=== PATIENT | female | born 1980 | race Caucasian/White ===

== ENCOUNTER 2019-06-28 12:30 | Outpatient (RCR) | payer OTHER, SELFPAY ==
--- NOTE | 2019-06-03 10:16 | PTOPEVAL ---
PHYSICAL THERAPY EVALUATION AND PLAN OF CARE 06-03-2019 The PT evaluation was completed for the diagnosis of B LE lymphedema. Treatment is scheduled for 3x/week for 5 weeks. Thank you for referring Mrs. Duvall to [facility]. Please review, sign, date and return this plan of care [facility]. I agree with and certify that the following plan of care is medically necessary. Referring Physician Date Attending Provider: Carmine Suero MD *PT Outpatient Evaluation Start: 06/03/19 09:06 Document 06/03/19 09:00 MARILU (Rec: 06/03/19 10:10 MARILU [id number]) Outpatient Past Medical History Neurological History Hx Neurological Disorders No Significant History Cardiovascular History Hx Hypertension Yes: meds Respiratory History Hx Bronchitis Yes: usually have in winter Hx Other Respiratory Disorders Yes: sinus issues and drainage ; sinus surgery Gastrointestinal History Hx Hernia Yes: hernia surgery x2- groin Genitourinary History Hx Urinary Tract Infection Yes Musculoskeletal History Hx Other Musculoskeletal Disorders Yes: obesity 338# Hematological History Hx Hematological Disorders No Significant History Endocrine History Hx Hypothyroidism Yes: meds HEENT History Hx Tonsillectomy Yes Hx Sinus Problems Yes: sinus surgery;polyp removals;take flonase Reproductive History Hx Other Reproductive Disorders Yes: 2 c- sections Evaluation Information Problem Diagnosis lympedema B LE Onset about 1 yr ago Prior Level of Function Activity Level (Last 3 Months) 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 Activity of Daily Living Ability Independent Indoor/Home Mobility Independent Community Mobility Independent Stairs Ability Independent Functional Cognition (Planning, Shopping Independent , Taking Medications) Cooking Yes Cleaning Yes Laundry Yes Shopping Yes Driving Yes Comments Additional Prior Level of Function have 2 teenage children at Comments home; work and indep with all tasks Pain Assessment Timing of Pain Assessment Timing of Pain Assessment Assessment Pain Scale Pain Scale Used Numeric (1 - 10) Self Report Pain Assessment Bilateral Leg(s) Reported Pain Level 0 Pain Description Tender on Palpation Pain Frequency Chronic Lowest Pain Intensity 0 Pain Score Pain Score 0: Self Report Bed Mobility Assessment Bed Mobility Overall Bed Mobility Ability Independent Gait Assessment Gait Assessmen
--- NOTE | 2019-06-28 13:34 | PCPTNOTE ---
PHYSICAL THERAPY DISCHARGE 06-28-2019 Attending Provider: Carmine Suero MD Patient:Lucila Duvall Date of :1980 Mrs. Duvall has received 11 PT sessions, from June 02 to today, for the diagnosis of lymphedema and lipedema B LE's. The circumferential measurements of her legs has decreased, with measurements from the bottom of her foot, up to 68 cm: R is 959.9 cm, decreased 8.9 cm and L is 949.5 cm, decreased by 23.3 cm. The tissue of her lower legs is without fibrosis and without redness. Her thighs are normal color without any fibrosis. There is minimal edema over the dorsum of her feet and ankles. To manage her lymphedema/lipedema, she has: compression knee high garments: Mediven Plus, open toe, with 20-30 mmHg compression and compression capris for her abdomen and thighs; home intermittent compression pump and education has been completed for self manual lymph drainage, skin care, and monitor her legs; she has a good understanding of self management and care. The PT goals have been achieved, and education has been completed; therefore she will be discharged at this time. Thank you for referring Lucila Duvall to [facility]. Please review, sign, date and return this discharge summary KARINA. I have been updated about the patient's current status and I agree with discharge from the above service at this time. Referring Physician Date
== END 2019-06-29 08:31 | disposition home or self-care (01) ==
LOC: ANHPT 12:30
PROVIDERS: PCP Family Medicine Adolescent Medicine; Visit Provider Family Medicine Adolescent Medicine
DX: R60.0 Localized edema (principal)
CPT/HCPCS: 29581; 97140; 97161

== ENCOUNTER 2020-07-11 17:38 | Emergency (ER) | payer OTHER, SELFPAY ==
[2020-07-11] VITALS (8 sets, daily range): BP systolic 138–216; BP diastolic 78–108; PULSE 60–80; RESP 16–18; TEMP 36.1; O2SAT 96–100
--- NOTE | ~2020-07-11 | CT_ITS ---
EXAMINATION: CT abdomen pelvis w con EXAM DATE: 07/11/2020 21:22 INDICATION: Low abdominal, back pain. TECHNIQUE: Spiral CT of the abdomen and pelvis was performed following intravenous injection of 100 m L Omnipaque 350. Axial, coronal and sagittal images of the abdomen and pelvis were reviewed. The do se-length product (DLP) for this examination was 1321.12 mGy-cm. The exposure was tailored according to patient size (auto mA exposure control), and iterative reconstruction (ASIR) was used as addition al dose reduction technique. There is no prior study for comparison. FINDINGS: The liver, spleen, adrenal glands and pancreas are unremarkable. Gallbladder is unremarkab le. No biliary obstruction. Portal and splenic veins are patent. Kidneys enhance symmetrically. T here is no hydronephrosis. The uterus is unremarkable. Right ovary has a dominant follicle at 3.4 c m. The bladder is unremarkable. There is no retroperitoneal or pelvic lymphadenopathy. Small umbi lical fat-containing hernia. The appendix is normal. The stomach and small bowel are unremarkable. There is expected amount of c olonic stool. No free intraperitoneal gas. The heart is normal in size. There are no pericardial or pleural effusions. The lung bases are unremarkable. There are no osteoblastic or osteolytic les ions identified. IMPRESSION: 1. No acute intra-abdominal findings. 2. Small umbilical fat-containing hernia. Reviewed, dictated and finalized at location A.
[2020-07-11 18:11] LABS: Basophils Percent Auto 0.1 % (0.2-1.2); Eosinophils Absolute Auto 0.5 K/mm3 (0-0.3); Eosinophils Percent Auto 7.1 % (0-4.4); Hematocrit 44.8 % (37.0-47.0); Hemoglobin 15.2 g/dL (12.0-15.0); Immature Granulocyte Absolute 0.01 K/mm3 (0.00-0.031); Immature Granulocyte Percent A 0.1 % (0-0.5); Lymphocytes Absolute Auto 2.49 K/mm3 (0.9-3.2); Mean Corpuscular HGB Conc 33.9 g/dl (32-36); Mean Corpuscular Hemoglobin 30.6 pg (26-34); Mean Corpuscular Volume 90.3 fl (80-100); Mean Platelet Volume 10.3 fl (7.4-10.4); Monocytes Absolute Auto 0.8 K/mm3 (0.1-0.6); Monocytes Percent Auto 10.9 % (2.6-8.5); Neutrophils Absolute Auto 3.5 K/mm3 (1.3-6.7); Neutrophils Percent Auto 47.8 % (45.5-73.1); Platelet Count Result 229 k/mm3 (150-375); Red Blood Count 4.96 M/mm3 (4.2-5.4); Red Cell Distribution Width 13.9 % (11.5-14.5); White Blood Count 7.3 K/mm3 (4.5-10.0)
[2020-07-11 18:21] LABS: Alanine Aminotransferase 15 U/L (4-35); Albumin Level 4.6 g/dL (3.5-5.1); Alkaline Phosphatase 61 U/L (38-126); Anion Gap 8 mmol/L (8-16); Aspartate Amino Transferase 27 U/L (14-36); Bilirubin,Total 0.7 mg/dL (0.2-1.3); Blood Urea Nitrogen 16 mg/dL (7-17); Carbon Dioxide 29 mmol/L (22-30); Chloride 100 mmol/L (98-107); Estimated CRCL calculation 131 ml/min; Estimated Glomerular Filt Rate > 60; Glucose 92 mg/dL (65-105); Lipase 52 U/L (23-300); Potassium 3.5 mmol/L (3.4-5.0); Sodium 137 mmol/L (137-145)
[2020-07-11 18:21] LABS: Add Urine Microscopic? YES; Appearance Urine Clear (Clear); Bilirubin Urine Negative (Negative); Blood Urine 1+ (Negative); Color Urine Yellow (Yellow); Glucose Urine UA Negative (Negative); Ketones Urine Negative (Negative); Leukocyte Esterase Ur Trace LEU/UL (Negative); Nitrate Urine Negative (Negative); Protein Urine Negative (Negative); RBC Urine 0-2 /hpf (0-2); Specific Grav Ur 1.016 (1.001-1.035); Squamous Epithelial Cell Urine Occasional /hpf (Few); Urobilinogen Urine Negative mg/dL (<2.0); WBC Urine 0-3 /hpf
[2020-07-11] MEDS: PANTOPRAZOLE SODIUM IV 40 MG VIAL IV PUSH (19:32)
[2020-07-11] MEDS: LIDOCAINE HCL 2% VISC SOLN 15 ML UDC 20 ML PO (19:32)
[2020-07-11] MEDS: MAG HYDROX/AL HYDROX/SIMETH 30 ML UDC PO (19:32)
[2020-07-11] MEDS: SODIUM CHLORIDE 0.9% IV 1,000 ML 999 ML IV CONT (19:32)
--- NOTE | 2020-07-11 20:17 | ED.GENADULT ---
HPI - General Adult General Chief complaint: Abdominal Pain <Reyes Donovan PA-C - Last Filed: 07/11/20 20:23> Stated complaint: flank pain <Reyes Donovan PA-C - Last Filed: 07/11/20 20:23> Time Seen by Provider: 07/11/20 18:28 <Reyes Donovan PA-C - Last Filed: 07/11/20 20:23> Source: patient, family and RN notes reviewed <Reyes Donovan PA-C - Last Filed: 07/11/20 20:23> Mode of arrival: ambulatory <Reyes Donovan PA-C - Last Filed: 07/11/20 20:23> Limitations: no limitations <Reyes Donovan PA-C - Last Filed: 07/11/20 20:23> History of Present Illness HPI narrative: Patient is a 40-year-old female who presents to emergency department for evaluation of acute onset of epigastric abdominal pain that began at 430 patient noted severe onset of pain that radiated into the back patient on arrival notes that the pain has slightly subsided patient notes that she had eaten a granola bar roughly an hour before on arrival she is in no distress and has not taken anything for symptoms nor has she had a similar occurrence in the past denies any fever chills nausea vomiting <Reyes Donovan PA-C - Last Filed: 07/11/20 20:23> Related Data Allergies/adverse reactions: Allergies Allergy/AdvReac Type Severity Reaction Status Date / Time [place] nut Allergy Severe Swelling Verified 07/11/20 18:47 of Lip/Tongue/Throat <Reyes Donovan PA-C - Last Filed: 07/11/20 20:23> Review of Systems Review of Systems: All systems reviewed & are unremarkable except as noted in HPI and below <Reyes Donovan PA-C - Last Filed: 07/11/20 20:23> PMFSH Past Medical History Medical History: Medical History (Updated 07/11/20 @ 20:22 by Reyes Donovan PA-C) Neftali-Danlos disease Obesity <Reyes Donovan PA-C - Last Filed: 07/11/20 20:23> Social History Social History: Social History (Updated 07/11/20 @ 20:19 by Reyes Donovan PA-C) Smoking status: Never smoker Gender identity (if verbalized by the patient): Female <Reyes Donovan PA-C - Last Filed: 07/11/20 20:23> Exam Narrative: Exam Narrative: GENERAL: Well-appearing, obese, and in no acute distress. HEAD: Normocephalic, atraumatic. EYES: PERRLA and EOMI. ENT: Nares clear, no rhinorrhea or epistaxis. Mucous membranes moist. CHEST: Clear to auscultation. No respiratory distress. No wheezes rales or rhonchi HEART: Regular rate and rhythm. No murmur heard. Normal peripheral pulses. ABDOMEN: Soft, epigastric abdominal tenderness remainder of abdomen nontender, nondistended EXTREMITIES: Normal range of motion. No edema. SKIN: Warm, dry, no rash. NEURO: No focal deficits. Alert and oriented x3. PSYCH: Normal mood and affect. <Reyes Donovan PA-C - Last Filed: 07/11/20 20:23> Course Course Emergency Course: Patient presented with abdominal pain that began acutely radiated to the back with tender abdominal exam patient was nontoxic-appearing on arrival. Patient was evaluated and given medications and had improvement specifically with a GI cocktail with decrease pain at this time which she stating is tolerable. Repeat exam continues to have mild epigastric abdominal tenderness . Patient had improvement with medications was given a plan to be discharged home with outpatient follow-up with primary care and gastroenterology will be placed on an acid low-fat diet and antispasmodics. Patient was also given plan that if her symptoms worsen or concerns she is to return to the emergency department. Patient agrees with this plan <Reyes Donovan PA-C - Last Filed: 07/11/20 20:23> Reevaluation(s) Reevaluation #1: Rechecked patient. She states that she feels better with minimal pain. Exam reveals no significant abdominal tenderness. Informed patient about CT findings and instructed her to follow up. <Michelle Jett MD - Last Filed: 07/11/20 23:52> Date: 07/11/20 <Michelle Jett MD
== END 2020-07-11 22:04 | disposition home or self-care (01) ==
PROVIDERS: Emergency Provider Emergency Medicine; PCP Family Medicine Adolescent Medicine
DX: R10.13 Epigastric pain (principal)
CPT/HCPCS: 36415; 74177; 80053; 81001; 81025; 83690; 85025; 96365; 96375; 99284; A9270; C9113; J0131; J7030; Q9967

== ENCOUNTER → 2020-08-19 00:06 | Outpatient (CLI) | payer OTHER, SELFPAY ==
[2020-08-19 19:27] LABS: SARS-CoV-2 RNA PCR Negative
== END ==
PROVIDERS: PCP Family Medicine Adolescent Medicine; Visit Provider Internal Medicine Gastroenterology
DX: Z01.812 Encounter for preprocedural laboratory examination (principal); Z20.822 Contact with and (suspected) exposure to COVID-19
CPT/HCPCS: C9803; U0003; U0005

== ENCOUNTER 2020-08-22 00:53 | Day surgery (SDC) | payer OTHER, SELFPAY ==
[2020-08-11 10:36] VITALS: BMI 39.9
[2020-08-22 08:55] VITALS: BP 163/104; PULSE 67; RESP 18; TEMP 36.1; O2SAT 100; BMI 40.1
[2020-08-22] MEDS: LACTATED RINGERS 1,000 ML 150 ML IV CONT (09:11)
--- NOTE | 2020-08-22 09:36 | WPDGICN ---
Assessment and Plan Assessment and plan (1) Epigastric abdominal pain: Code(s): R10.13 - Epigastric pain Status: Acute Assessment and Plan: Patient with several episodes of severe prolonged epigastric pain. Plan is for EGD to assess more thoroughly. Gallbladder ultrasound also be performed. Further recommendations will be given after endoscopy. 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 She has lost 95 lb over last 8 months. This certainly could contribute to gallbladder disease. Although CT scan was unremarkable suggest gallbladder ultrasound be performed. GI Consult Note Consult date/time: 08/22/20 09:36 HPI: Lucila Duvall is a 40 year old female Presents for EGD. Patient has had several severe episodes of epigastric pain. Initial episode 1 month ago lasted for 5 hours and prompted her to go to the emergency room. She has had a 2nd episode awoke her from sleep also located in the epigastric area. She states pain is rather intense. Not related to diet or activity. In the ER a CT scan was performed found to be unremarkable. Patient has a history of obesity. She reports and 95 lb weight loss over the last 8 months. Gallbladder ultrasound is pending. Her family history is noncontributory. 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 Review of Systems Review of Systems: All systems reviewed & are unremarkable except as noted in HPI and below PMFSH Past Medical History Medical History (Updated 08/22/20 @ 09:38 by Gary Sharp MD) delivery delivered Neftali-Danlos disease Obesity Thyroid disorder Surgical History Surgical History (Updated 07/19/20 @ 11:55 by Karin Greco MA) H/O bilateral inguinal hernia repair History of sinus surgery Hx of tonsillectomy Family History Family History (Updated 07/19/20 @ 11:48 by Karin Greco MA) Father Depression Mother Depression Hypertension Auto immune neutropenia Thyroid activity decreased Grandparent Hypertension Heart disease Social History Social History (Updated 07/11/20 @ 20:19 by Reyes Donovan PA-C) Smoking status: Never smoker Living arrangements: with family Gender identity (if verbalized by the patient): Female Spiritual care concerns: No Meds Home Medications and Allergies Home Medications Medication Instructions Recorded Confirmed Type hydrochlorothiazide 25 mg tablet 25 mg PO DAILY 07/19/20 08/22/20 History levothyroxine 150 mcg capsule 150 mcg PO DAILY 07/19/20 08/22/20 History Serrapeptase 40,000 units PO DAILY 08/11/20 08/22/20 History cholecalciferol (vitamin D3) 100 mcg PO DAILY 08/11/20 08/22/20 History [Vitamin D3] guaifenesin 400 mg PO TID 08/11/20 08/22/20 History Allergies Allergy/AdvReac Type Severity Reaction Status Date / Time [place] nut Allergy Severe Swelling Verified 08/22/20 08:50 of Lip/Tongue/Throat Vital Signs Vital Signs - 24 hr 08/22/20 08:55 Temperature 97.0 F L Pulse Rate 67 Respiratory Rate 18 Blood Pressure 163/104 H Pulse Oximetry 100 Exam Narrative: Exam Narrative: Physical exam reveals patient be alert. Vital signs stable. HEENT exam is unremarkable. Patient is anicteric. Lungs are clear to auscultation and percussion. Heart is without murmur or extra sounds. Abdominal exam bowel sounds are present soft nontender with no hepatosplenomegaly. Digital rectal exam is normal.
--- NOTE | 2020-08-22 09:57 | WPDANESEPPF ---
Anes - Initial Pre Proc Eval Procedure: Operation Date: 08/22/20 10:00 Proposed Procedures p Esophagogastroduodenoscopy - Gary Sharp MD Date/Time: 08/22/20 09:57 Surgeon: Gary Sharp MD Pre Op Diagnosis: Epigastric pain Patient Data Age: 40 Gender: F Height: 1.65 m Weight: 109.4 kg Last Vital Signs Temp 97.0 F L 08/22/20 08:55 Pulse 67 08/22/20 08:55 Resp 18 08/22/20 08:55 BP 163/104 H 08/22/20 08:55 Pulse Ox 100 08/22/20 08:55 Allergies Allergy/AdvReac Type Severity Reaction Status Date / Time [place] nut Allergy Severe Swelling Verified 08/22/20 08:50 of Lip/Tongue/Throat Home Medications Medication Instructions Recorded Confirmed Type hydrochlorothiazide 25 mg tablet 25 mg PO DAILY 07/19/20 08/22/20 History levothyroxine 150 mcg capsule 150 mcg PO DAILY 07/19/20 08/22/20 History Serrapeptase 40,000 units PO DAILY 08/11/20 08/22/20 History cholecalciferol (vitamin D3) 100 mcg PO DAILY 08/11/20 08/22/20 History [Vitamin D3] guaifenesin 400 mg PO TID 08/11/20 08/22/20 History Patient hx anesthesia problems: none Family hx anesthesia problems: none PMFSH Past Medical History Medical History (Updated 08/22/20 @ 09:38 by Gary Sharp MD) delivery delivered Neftali-Danlos disease Obesity Thyroid disorder Surgical History Surgical History (Updated 07/19/20 @ 11:55 by Karin Greco MA) H/O bilateral inguinal hernia repair History of sinus surgery Hx of tonsillectomy Family History Family History (Updated 07/19/20 @ 11:48 by Karin Greco MA) Father Depression Mother Depression Hypertension Auto immune neutropenia Thyroid activity decreased Grandparent Hypertension Heart disease Social History Social History (Updated 07/11/20 @ 20:19 by Reyes Donovan PA-C) Smoking status: Never smoker Living arrangements: with family Gender identity (if verbalized by the patient): Female Spiritual care concerns: No Anes - Eval Final PreProcedure Day of Procedure 08/22/20 09:57 Patient weight: morbidly obese Heart: regular rate and rhythm Lungs: clear to auscultation Airway: Mallampati scale class II Neurological: alert and oriented Last oral intake: >/= 8 hours ASA classification: III Emergent: no Anesthetic plan: proceed Anesthesia type and monitoring: general GIVS and standard monitoring Informed Consent: The patient's anesthetic plan and its attendant risks and benefits were discussed with the patient/family/POA. Questions were solicited and answers provided to the satisfaction of the patient/family/POA.
[2020-08-22 10:30] VITALS: BP 139/91; PULSE 66; RESP 18; O2SAT 100
[2020-08-22 10:40] VITALS: BP 142/93; PULSE 66; RESP 22; O2SAT 100
== END 2020-08-22 10:55 | disposition home or self-care (01) ==
PROVIDERS: PCP Family Medicine Adolescent Medicine; Visit Provider Internal Medicine Gastroenterology
PROC: 0DJ08ZZ Inspection of Upper Intestinal Tract, Via Natural or Artificial Opening Endoscopic (ICD-10-PCS; CPT 43235; principal; 2020-08-22 10:00)
DX: R10.13 Epigastric pain (principal); Q79.60 Ehlers-Danlos syndrome, unspecified; E07.9 Disorder of thyroid, unspecified; E66.01 Morbid (severe) obesity due to excess calories; Z68.41 Body mass index [BMI] 40.0-44.9, adult
CPT/HCPCS: 43239; 87081; C9803; J2704; J7120; U0003; U0005

== ENCOUNTER 2020-09-20 07:32 | Outpatient (CLI) | payer OTHER, SELFPAY ==
--- NOTE | ~2020-09-20 | US_ITS ---
US abdomen limited DATE: 09/20/2020 08:18 INDICATION: Epigastric abdominal pain TECHNIQUE: Real-time imaging and Doppler analysis COMPARISON: 07/11/2020 CT abdomen pelvis FINDINGS: No hepatic or pancreatic space-occupying mass lesion. Normal hepatopedal portal venous flow direction. Multiple mobile shadowing filling defects of the gallbladder consistent with cholelithiasis. Gallblad lizbeth wall thickness is within normal limits. Negative sonographic Smith's sign. The common bile duct measures 5 mm, within normal limits. IMPRESSION: Cholelithiasis Reviewed, dictated and finalized at Location [facility]. Reviewed, dictated and finalized at location A. IMPRESSION: Cholelithiasis
== END 2020-09-20 07:33 | disposition home or self-care (01) ==
LOC: ANHIMG 07:37
PROVIDERS: PCP Family Medicine Adolescent Medicine; Visit Provider Internal Medicine Gastroenterology
DX: R10.13 Epigastric pain (principal); K80.20 Calculus of gallbladder without cholecystitis without obstruction
CPT/HCPCS: 76705

== ENCOUNTER 2020-11-02 12:04 | Emergency (ER) | payer OTHER, SELFPAY ==
--- NOTE | ~2020-11-02 | US_ITS ---
EXAMINATION: US right upper quadrant DATE: 11/02/2020 14:09 INDICATION: Right upper quad and abdominal pain TECHNIQUE: Multiple grayscale and Doppler ultrasound images of the abdomen were obtained. COMPARISON: None FINDINGS: The pancreatic head and body are normal in appearance. The pancreatic tail is not visualized. Liver has normal echogenicity and contour, with a smooth surface. No liver lesion identified. No intrahepat ic biliary duct dilation suspected. Portal venous flow was seen in the hepatopetal, normal direction and has normal Doppler waveform. Visualized proximal inferior vena cava is normal. Multiple small ech ogenic and shadowing gallstones within the dependent aspect of the otherwise normal-appearing gallbla dder with no dilation or abnormal wall thickening. Sonographic Smith sign was reported as negative b y the house manager.The common bile duct measures 3 mm in maximal diameter which is normal. Right kidne y measures 11.4 x 5.9 x 3.6 cm with normal echogenicity and contour and no hydronephrosis. IMPRESSION: 1. Cholelithiasis. Otherwise normal right upper quadrant ultrasound. Reviewed, dictated and finalized at location A.
[2020-11-02 12:17] VITALS: BP 159/77; PULSE 52; RESP 18; TEMP 37.1; O2SAT 95
[2020-11-02 12:46] LABS: Basophils Percent Auto 0.2 % (0.2-1.2); Eosinophils Absolute Auto 0.3 K/mm3 (0-0.3); Eosinophils Percent Auto 5.3 % (0-4.4); Hematocrit 44.8 % (37.0-47.0); Hemoglobin 15.3 g/dL (12.0-15.0); Immature Granulocyte Absolute 0.01 K/mm3 (0.00-0.031); Immature Granulocyte Percent A 0.2 % (0-0.5); Lymphocytes Absolute Auto 1.58 K/mm3 (0.9-3.2); Lymphocytes Percent Auto 24.8 % (18.3-44.2); Mean Corpuscular HGB Conc 34.2 g/dl (32-36); Mean Corpuscular Volume 87.8 fl (80-100); Mean Platelet Volume 10.6 fl (7.4-10.4); Monocytes Absolute Auto 0.5 K/mm3 (0.1-0.6); Neutrophils Absolute Auto 3.9 K/mm3 (1.3-6.7); Neutrophils Percent Auto 61.5 % (45.5-73.1); Platelet Count Result 236 k/mm3 (150-375); Red Cell Distribution Width 13.4 % (11.5-14.5); White Blood Count 6.4 K/mm3 (4.5-10.0)
[2020-11-02 12:56] LABS: Alanine Aminotransferase 13 U/L (4-35); Albumin Level 4.3 g/dL (3.5-5.1); Alkaline Phosphatase 57 U/L (38-126); Anion Gap 12 mmol/L (8-16); Aspartate Amino Transferase 23 U/L (14-36); Bilirubin,Total 0.7 mg/dL (0.2-1.3); Blood Urea Nitrogen 20 mg/dL (7-17); Calcium 9.8 mg/dL (8.4-10.2); Carbon Dioxide 24 mmol/L (22-30); Chloride 101 mmol/L (98-107); Estimated CRCL calculation 126 ml/min; Estimated Glomerular Filt Rate > 60; Glucose 113 mg/dL (65-110); Lipase 43 U/L (23-300); Potassium 3.9 mmol/L (3.4-5.0); Sodium 137 mmol/L (137-145)
[2020-11-02 13:05] LABS: Add Urine Microscopic? YES; Appearance Urine Clear (Clear); Bilirubin Urine Negative (Negative); Blood Urine 1+ (Negative); Color Urine Straw (Yellow); Glucose Urine UA Negative (Negative); Ketones Urine 1+ mg/dL (Negative); Leukocyte Esterase Ur Trace LEU/UL (Negative); Mucus Urine Rare /lpf; Nitrate Urine Negative (Negative); Protein Urine Negative (Negative); RBC Urine 0-2 /hpf (0-2); Specific Grav Ur 1.014 (1.001-1.035); Squamous Epithelial Cell Urine Few /hpf (Few); Urobilinogen Urine Negative mg/dL (<2.0); WBC Urine 0-3 /hpf
--- NOTE | 2020-11-02 13:30 | ED.ABDPAIN ---
HPI - Abdominal Pain General Chief Complaint: Abdominal Pain Stated Complaint: Gallstones/Vomiting Time Seen by Provider: 11/02/20 12:59 Source: patient Mode of arrival: ambulatory Limitations: no limitations History of Present Illness HPI narrative: Patient is a 40-year-old female complaining of right quadrant pain, was 9 out of 10 currently down to 5 out of 10, sharp, nonradiating accompanied by nausea vomiting started prior to arrival. Patient states that she has a history of gallstones and scheduled for surgery on December [address] Bingham. Patient denies any chest pain, shortness of breath, diarrhea, fever, chills or urinary symptoms. Related Data Home Medications Medication Instructions Recorded Confirmed hydrochlorothiazide 25 mg tablet 25 mg PO DAILY 07/19/20 10/12/20 levothyroxine 150 mcg capsule 150 mcg PO DAILY 07/19/20 10/12/20 cholecalciferol (vitamin D3) 100 mcg PO DAILY 08/11/20 10/12/20 [Vitamin D3] guaifenesin 400 mg PO TID 08/11/20 10/12/20 Allergies Allergy/AdvReac Type Severity Reaction Status Date / Time [place] nut Allergy Severe Swelling Verified 10/10/20 09:29 of Lip/Tongue/Throat Review of Systems Review of Systems: All systems reviewed & are unremarkable except as noted in HPI and below Constitutional: Constitutional: Denies body ache(s), Denies chills, Denies excessive sweating, Denies fatigue, Denies fever(s), Denies headache(s), Denies lethargy, Denies malaise, Denies weakness and Denies weight loss Eyes: Eyes: Denies blurry vision, Denies change in vision and Denies loss of vision ENT: Denies dizziness, Denies ear discharge, Denies headache(s), Denies lip swelling, Denies epistaxis, Denies nasal congestion, Denies neck pain, Denies throat swelling and Denies tongue swelling Cardiovascular: Cardiovascular: Denies chest pain, Denies chest pain at rest, Denies chest pain with activity, Denies diaphoresis, Denies rapid heart rate, Denies edema, Denies irregular heart rhythm, Denies lightheadedness, Denies palpitations, Denies dyspnea and Denies dyspnea on exertion Respiratory: Respiratory: Denies chest congestion, Denies cough, Denies hemoptysis, Denies dyspnea and Denies dyspnea on exertion Gastrointestinal: Gastrointestinal: Denies melena, Denies hematochezia, Denies diarrhea and Denies hematemesis Musculoskeletal: Musculoskeletal: Denies abnormal gait, Denies deformity, Denies joint swelling, Denies limited range of motion, Denies neck pain and Denies numbness Neurologic: Denies Abnormal speech present, Denies abnormal gait, Denies confusion, Denies dizziness, Denies headache(s), Denies focal weakness, Denies loss of vision, Denies numbness, Denies Other visual disturbances, Denies Sensory deficit (Neuro) and Denies weakness Psychiatric: Psychiatric: Denies confusion, Denies depression, Denies auditory hallucinations, Denies homicidal ideation and Denies suicidal ideation Endocrine: Endocrine: Denies cold intolerance, Denies excessive sweating, Denies fatigue, Denies heat intolerance and Denies palpitations Hematologic/Lymphatic: Hematologic/Lymphatic: Denies easy bleeding and Denies easy bruising Allergic/Immunologic: Allergic/Immunologic: Denies lip swelling, Denies throat swelling and Denies tongue swelling PMFSH Past Medical History Medical History delivery delivered Neftali-Danlos disease Obesity Thyroid disorder Surgical History Surgical History H/O bilateral inguinal hernia repair History of delivery History of sinus surgery Hx of tonsillectomy Family History Family History Father Depression Mother Depression Hypertension Auto immune neutropenia Thyroid activity decreased Grandparent Hypertension Heart disease Social History Social History (Reviewed 11/02/20 @ 13:32 by
[2020-11-02] MEDS: SODIUM CHLORIDE 0.9% IV 1,000 ML 999 ML IV CONT (14:13)
[2020-11-02 16:33] VITALS: BP 136/82; PULSE 79; RESP 18; O2SAT 100
== END 2020-11-02 15:30 | disposition home or self-care (01) ==
PROVIDERS: Emergency Provider Emergency Medicine; PCP Family Medicine Adolescent Medicine
DX: K80.20 Calculus of gallbladder without cholecystitis without obstruction (principal); Q79.60 Ehlers-Danlos syndrome, unspecified; E66.9 Obesity, unspecified; Z68.37 Body mass index [BMI] 37.0-37.9, adult; E07.9 Disorder of thyroid, unspecified
CPT/HCPCS: 36415; 76705; 80053; 81001; 81025; 83690; 85025; 96360; 99284; J7030

== ENCOUNTER 2020-11-10 07:55 | Outpatient (CLI) | payer OTHER, SELFPAY ==
--- NOTE | 2020-11-10 08:00 | ECG_ITS ---
Measurements Intervals [place] Rate: 51 P: 22 OK: 161 QRS: 14 QRSD: 97 T: 16 QT: 480 QTc: 444 Interpretive Statements SINUS BRADYCARDIA WITH SINUS ARRHYTHMIA POSSIBLE LEFT ATRIAL ENLARGEMENT DELAYED PRECORDIAL R/S TRANSITION BASELINE ARTIFACT- I, III, AVL BORDERLINE ECG Electronically Signed On 11-10-2020 8:34:37 CDT by Irwin Man D.O.
[2020-11-10 09:18] LABS: Alanine Aminotransferase 20 U/L (4-35); Alkaline Phosphatase 48 U/L (38-126); Amylase 74 U/L (30-110); Aspartate Amino Transferase 36 U/L (14-36); Bilirubin,Total 0.7 mg/dL (0.2-1.3); Lipase 35 U/L (23-300)
== END 2020-11-10 07:56 | disposition home or self-care (01) ==
LOC: ANHSURGERY 08:00
PROVIDERS: PCP Family Medicine Adolescent Medicine; Visit Provider Surgery
DX: Z01.818 Encounter for other preprocedural examination (principal); K80.20 Calculus of gallbladder without cholecystitis without obstruction; I10 Essential (primary) hypertension; R00.1 Bradycardia, unspecified; R93.41 Abnormal radiologic findings on diagnostic imaging of renal pelvis, ureter, or bladder
CPT/HCPCS: 36415; 80076; 82150; 83690; 86850; 86900; 86901; 93005

== ENCOUNTER 2020-11-15 00:43 | Day surgery (SDC) | payer OTHER, SELFPAY ==
[2020-11-08 13:24] VITALS: BMI 37.4
--- NOTE | 2020-11-14 14:41 | WPDANESEPPF ---
Anes - Initial Pre Proc Eval Procedure: Operation Date: 11/15/20 09:30 Proposed Procedures p Laparoscopic Cholecystectomy, Possible Open - Lv Bingham DO Date/Time: 11/14/20 14:41 Surgeon: Lv Bingham DO Pre Op Diagnosis: symptomatic cholelithiasis Patient Data Age: 40 Gender: F Height: 1.65 m Weight: 102 kg Allergies Allergy/AdvReac Type Severity Reaction Status Date / Time [place] nut Allergy Severe Swelling Verified 11/15/20 08:35 of Lip/Tongue/Throat Home Medications Medication Instructions Recorded Confirmed Type hydrochlorothiazide 25 mg tablet 25 mg PO DAILY 07/19/20 11/08/20 History levothyroxine 150 mcg capsule 150 mcg PO DAILY 07/19/20 11/08/20 History cholecalciferol (vitamin D3) 100 mcg PO DAILY 08/11/20 11/08/20 History [Vitamin D3] guaifenesin 400 mg PO TID 08/11/20 11/08/20 History Patient hx anesthesia problems: none Family hx anesthesia problems: none PMFSH Past Medical History Medical History (Updated 11/14/20 @ 14:42 by Tonny Morris MD) BMI 38.0-38.9,adult delivery delivered Neftali-Danlos disease HTN (hypertension) Obesity Thyroid disorder Surgical History Surgical History H/O bilateral inguinal hernia repair History of delivery History of sinus surgery Hx of tonsillectomy Family History Family History Father Depression Mother Depression Hypertension Auto immune neutropenia Thyroid activity decreased Grandparent Hypertension Heart disease Social History Social History Smoking status: Never smoker Living arrangements: with family Gender identity (if verbalized by the patient): Female Spiritual care concerns: No Anes - Eval Final PreProcedure Day of Procedure 11/14/20 14:41 Patient weight: obese Heart: regular rate and rhythm Lungs: clear to auscultation and normal air movement Airway: Mallampati scale class II Neurological: alert and oriented Last oral intake: >/= 8 hours ASA classification: III Emergent: no Anesthetic plan: proceed Anesthesia type and monitoring: general ETT Informed Consent: The patient's anesthetic plan and its attendant risks and benefits were discussed with the patient/family/POA. Questions were solicited and answers provided to the satisfaction of the patient/family/POA.
[2020-11-15] VITALS (9 sets, daily range): BP systolic 103–159; BP diastolic 66–96; PULSE 46–61; RESP 12–20; TEMP 36.1–36.2; O2SAT 97–100; BMI 37.3
[2020-11-15] MEDS: LACTATED RINGERS 1,000 ML 30 ML IV CONT (08:15)
[2020-11-15] MEDS: KETOROLAC 15 MG/ML VIAL (*BKC) IV PUSH (08:20)
[2020-11-15] MEDS: ACETAMINOPHEN 500 MG TABLET 1000 MG PO (08:20)
--- NOTE | 2020-11-15 09:15 | PM.IMHP ---
H&P: HPI History of Present Illness Date/Time: 11/15/20 09:15 Chief Complaint: symptomatic cholelithiasis Narrative: 40-year-old woman presents for laparoscopic cholecystectomy. She reports no significant changes since last seen in the office. She did have 1 episode of severe pain that required her to go to the ER, but no changes were noted on her ultrasound and she was able to get her pain controlled and sent home from the ER. Review of Systems Review of Systems: All systems reviewed & are unremarkable except as noted in HPI and below Constitutional: Constitutional: Denies chills, Denies fever(s), Denies headache(s) and Denies weight loss Eyes: Eyes: Denies change in vision ENT: Denies dizziness, Denies headache(s), Denies neck mass and Denies throat swelling Cardiovascular: Cardiovascular: Denies chest pain, Denies lightheadedness and Denies dyspnea Respiratory: Respiratory: Denies cough, Denies dyspnea and Denies wheezing Gastrointestinal: Gastrointestinal: Denies abdominal pain, Denies change in bowel habits, Denies nausea and Denies vomiting Genitourinary: Genitourinary: Denies hematuria and Denies dysuria Musculoskeletal: Musculoskeletal: Reports as per HPI Integumentary/Breasts: Skin/Breast: Reports as per HPI Neurologic: Denies dizziness and Denies headache(s) Allergic/Immunologic: Allergic/Immunologic: Denies throat swelling and Denies wheezing PMFSH Past Medical History Medical History (Updated 11/14/20 @ 14:42 by Tonny Morris MD) BMI 38.0-38.9,adult delivery delivered Neftali-Danlos disease HTN (hypertension) Obesity Thyroid disorder Surgical History Surgical History H/O bilateral inguinal hernia repair History of delivery History of sinus surgery Hx of tonsillectomy Family History Family History Father Depression Mother Depression Hypertension Auto immune neutropenia Thyroid activity decreased Grandparent Hypertension Heart disease Social History Social History Smoking status: Never smoker Living arrangements: with family Gender identity (if verbalized by the patient): Female Spiritual care concerns: No Meds Home Medications and Allergies Home Medications Medication Instructions Recorded Confirmed Type hydrochlorothiazide 25 mg tablet 25 mg PO DAILY 07/19/20 11/08/20 History levothyroxine 150 mcg capsule 150 mcg PO DAILY 07/19/20 11/15/20 History cholecalciferol (vitamin D3) 100 mcg PO DAILY 08/11/20 11/15/20 History [Vitamin D3] guaifenesin 400 mg PO TID 08/11/20 11/08/20 History Allergies Allergy/AdvReac Type Severity Reaction Status Date / Time [place] nut Allergy Severe Swelling Verified 11/15/20 08:35 of Lip/Tongue/Throat Vital Signs Vital Signs - 24 hr 11/15/20 07:40 Temperature 36.1 C L Pulse Rate 60 Respiratory Rate 16 Blood Pressure 159/88 H Pulse Oximetry 100 Exam Const: General: no acute distress and alert Orientation/consciousness: patient oriented x3 HENMT: Head: normocephalic and atraumatic Ears: hearing grossly normal bilaterally General nose exam: Normal nares present Mouth: Yes Normal oral and palatal mucosa present Eyes: Periorbital: periorbital findings normal Sclera: sclerae normal EOM: EOMs intact bilaterally Neck: Neck: normal visual inspection, no lymphadenopathy and trachea midline Chest: Chest palpation & inspection: normal inspection of the chest Resp: Effort & Inspection: normal respiratory effort Auscultation: clear to auscultation bilaterally Cardio: Jugular venous distension: no JVD Rate: regular rate Rhythm: regular rhythm Heart sounds: S1 normal heart sound present and S2 normal heart sound present Peripheral pulses: Peripheral pulses 2+ throughout GI: Inspection: normal to inspection GI
--- NOTE | 2020-11-15 09:16 | WPDHPUPDATE1 ---
History and Physical Update Update Date/Time: 11/15/20 09:16 History and Physical has been reviewed, including an updated exam of the patient. There are NO changes in the patient's condition. Risks, benefits, and alternatives have been discussed and questions answered. Patient agrees to proceed with procedure.
[2020-11-15] MEDS: ceFAZolin 2 GM/D5W 50 ML 2 GM/50 ML BAG IVPB (09:51)
[2020-11-15] MEDS: BUPIVACAINE/EPINEPHRINE 0.25% 50 ML VIAL 30 ML INFILTRATE (10:10)
--- NOTE | 2020-11-15 10:51 | W.PM.PROC2 ---
Procedure Note - Detailed Date of Procedure 11/15/20 Pre-op Diagnosis symptomatic cholelithiasis Post-op Diagnosis same Procedure Performed Laparoscopic Cholecystectomy Surgeon Lv Bingham, DO Anesthesia general and local (0.5% bupivacaine with epinephrine) Indications This is a 40-year-old woman who presented with episodic upper abdominal pains for the past several months. She had previous imaging including an ultrasound which showed evidence of cholelithiasis. She also had an EGD which was negative. Discussions were made with the patient about treatment options and decision was made to proceed with laparoscopic cholecystectomy, possible open. Findings Laparoscopic cholecystectomy was performed. The gallbladder was partially intrahepatic and contained several small gallstones. The cystic duct was normal in size. The gallbladder was removed and sent to the lab for pathology. I inspected the periumbilical region because previous imaging showed evidence of a small umbilical hernia. No clear hernia was visible laparoscopically, but palpating this region there did appear to be may be a small 2-3 mm umbilical hernia defect containing a small amount of preperitoneal fat. Description of Procedure Procedure as well as risks, benefits, and alternatives were discussed with patient. Written consent was obtained and placed in chart prior to procedure. The patient was brought back to surgical suite. Patient was placed in supine position on operating table. Time-out was done to confirm patient and procedure. Patient was then intubated by the anesthesia department. Abdomen was prepped and draped in sterile fashion using chlorhexidine prep. 0.5% bupivacaine with epinephrine was infiltrated at each site of incision. A 5 millimeter incision was made near the umbilicus, and a 5 millimeter Optiview trocar was advanced through the abdominal layers under direct visualization. Once inside the abdominal cavity, carbon dioxide was insufflated to create a pneumoperitoneum. The camera was inserted and the abdomen was inspected. No immediate abnormalities were identified. The patient was placed in reverse Trendelenburg position and rotated slightly to the left. An 11 millimeter incision was made in the subxiphoid region, and an 11 millimeter trocar was inserted under direct visualization. Two 5 millimeter incisions were made in the right upper quadrant, and two 5 millimeter trocars were inserted under direct visualization. The gallbladder was identified and grasped at the fundus and retracted superiorly. It was then grasped at the infundibulum retracted laterally. Careful dissection around the neck of the gallbladder was performed using blunt dissection with a [place] grasper and hook electrocautery. The cystic duct was identified, and a window was created behind it. The cystic artery was also identified and a window was created behind it. The critical view of safety was identified, visualizing the cystic duct running directly into the neck of the gallbladder, and the cystic artery running directly into the wall of the gallbladder. A 5 millimeter clip stitching machine setter was then used to place 2 clips proximally and 1 clip distally on both the cystic duct and cystic artery. They were then both transected using endoscopic scissors. Once safely away from the george hepatitis, the gallbladder was dissected free from the liver bed using hook electrocautery. Hemostasis was achieved along the way. The gallbladder was removed completely and then removed through the subxiphoid port. The liver bed was then inspected. Hemostasis appeared adequate, and our clips appeared secure. The area was gently irrigated with sterile saline. No other abnormalities were seen. The patient was flattened out in bed, and 1 final inspection was made around the abdominal cavity. The subxiphoid port was removed, and a Dino Corey cone was used to approximate the fascia with an 0-Vicryl simple interr
== END 2020-11-15 13:00 | disposition home or self-care (01) ==
PROVIDERS: PCP Family Medicine Adolescent Medicine; Visit Provider Surgery
PROC: 0FT44ZZ Resection of Gallbladder, Percutaneous Endoscopic Approach (ICD-10-PCS; CPT 47562; principal; 2020-11-15 09:30)
DX: K80.10 Calculus of gallbladder with chronic cholecystitis without obstruction (principal); Q79.60 Ehlers-Danlos syndrome, unspecified; I10 Essential (primary) hypertension; E07.9 Disorder of thyroid, unspecified; E66.9 Obesity, unspecified; Z68.37 Body mass index [BMI] 37.0-37.9, adult
CPT/HCPCS: 47562; 36415; 80076; 82150; 83690; 86850; 86900; 86901; 88304; 93005; A9270; J0690; J1100; J1885; J2250; J2405; J2704; J2710; J3010; J7030; J7120

== ENCOUNTER 2023-12-02 08:21 | Emergency (ER) | payer OTHER, SELFPAY ==
[2023-12-02 08:31] VITALS: BP 154/96; PULSE 74; RESP 18; TEMP 36.2; O2SAT 96
--- NOTE | 2023-12-02 08:35 | ED.WOUNDLAC ---
HPI - Wound/Laceration General Chief Complaint: Wound/Laceration Stated Complaint: cat scratch left leg Time Seen by Provider: 12/02/23 08:35 Source: patient, RN notes reviewed and old records reviewed Mode of arrival: ambulatory Limitations: no limitations History of Present Illness HPI narrative: Patient presents with complaints tenderness left lower extremity. She reports that she was accidentally scratched by her cat about a week ago. She immediately washed the area, but has noticed over the past few days that she is having increasing redness and warmth. She denies any fever, chills, sweats. She denies any drainage. She denies other injury and trauma. She voices no other concerns or complaints today. Related Data Home Medications Medication Instructions Recorded Confirmed turmeric 100 mg-janice 150 1 cap PO TID 07/10/21 12/02/23 mg-olive 50 mg-oreg 150 mg-capryl capsule Allergies Allergy/AdvReac Type Severity Reaction Status Date / Time [place] nut Allergy Severe Swelling Verified 12/02/23 08:31 of Lip/Tongue/Throat Review of Systems Review of Systems: All systems reviewed & are unremarkable except as noted in HPI and below Constitutional: Constitutional: Reports no additional constitutional complaints ENT: Reports system reviewed and no additional complaints, except as documented Cardiovascular: Cardiovascular: Reports no additional cardiovascular complaints Respiratory: Respiratory: Reports no additional respiratory complaints Gastrointestinal: Gastrointestinal: Reports no additional gastrointestinal complaints Integumentary/Breasts: Skin/Breast: Reports system reviewed and no additional complaints, except as docu, Reports as per HPI, Reports erythema, Reports skin pain and Reports wounds (Cat scratch, left lower extremity) PMFSH Past Medical History Medical History (Updated 12/02/23 @ 08:46 by Lila Avila APRN) BMI 38.0-38.9,adult delivery delivered Neftali-Danlos disease HTN (hypertension) Obesity Thyroid disorder Surgical History Surgical History H/O bilateral inguinal hernia repair History of delivery History of sinus surgery Hx laparoscopic cholecystectomy Hx of tonsillectomy Family History Family History Father Depression Mother Depression Hypertension Auto immune neutropenia Thyroid activity decreased Asthma Diabetes mellitus Grandparent Hypertension Heart disease Auto immune neutropenia Social History Social History Smoking status: Never smoker Second hand tobacco smoke exposure: No Alcohol intake: never Substance use: never Substance use type: does not use Do You Feel Safe in your Home?: Yes Lack of Transportation: No Lack of Food: Never True Current Housing: I Have Housing Concerned About Future Housing: No Difficulty Paying Gas/Electric Bills: No Difficulty Paying for Meds: No Currently Unemployed: No Education: Bachelor's Degree Difficulty w/ Childcare or Family Care: No Living arrangements: with family Occupation/Education: occupation Gender identity (if verbalized by the patient): Female Sexual Orientation (if Verbalized by the Patient): Straight or Heterosexual Spiritual care concerns: No Agree to blood products: Yes Comments At the time of my signature, I reviewed and agree with the nursing past medical, surgical, social, and family history. There is no relevant family history pertinent to the patient complaint. Exam Const: General: cooperative, no acute distress, alert and awake Orientation/consciousness: oriented to person, oriented to place and oriented to time HENMT: Head: normal to inspection Resp: Effort & Inspection: normal respiratory effort and able to speak in complete sentences Auscultati
[2023-12-02] MEDS: TETANUS,DIPHTHERIA,AC PERTUSSIS ADULT (0.5 ML) BOOSTRIX IM (08:54)
== END 2023-12-02 09:03 | disposition home or self-care (01) ==
PROVIDERS: Emergency Provider Nurse Practitioner Family; PCP Family Medicine Adolescent Medicine
DX: L03.116 Cellulitis of left lower limb (principal); S80.812A Abrasion, left lower leg, initial encounter; W55.03XA Scratched by cat, initial encounter; I10 Essential (primary) hypertension; Z23 Encounter for immunization; Q79.60 Ehlers-Danlos syndrome, unspecified; E66.9 Obesity, unspecified; Z68.41 Body mass index [BMI] 40.0-44.9, adult
CPT/HCPCS: 90471; 90715; 99213; G0463